=== PATIENT | female | born 1970 | race Two or more races ===

== ENCOUNTER 2019-09-02 22:47 | Emergency (ER) | payer SELFPAY ==
[~2019-09-02] VITALS: Ht 157.5 cm; Wt 80.0 kg
[2019-09-02] MEDS ORDERED: LISI-662 PO (23:03)
[2019-09-02] MEDS ORDERED: SODIUM CHLORIDE 0.9% 1,000 ML IV ONE (23:45)
[2019-09-02] MEDS ORDERED: ACETAMINOPHEN 500 MG TABLET PO ONE (23:45)
[2019-09-03 00:18] LABS: BASOPHILS % (AUTO) 0.7 % (0.0-2.0); EOSINOPHILS % (AUTO) 2.2 % (1.0-6.0); HEMATOCRIT 40.4 % (36-46); HEMOGLOBIN 13.6 g/dL (12.0-16.0); LYMPHOCYTES # (AUTO) 2.1 K/uL (1.0-4.8); LYMPHOCYTES % (AUTO) 31.7 % (22.0-44.0); MEAN CORPUSCULAR HEMOGLOBIN 28.9 pg (26.0-34.0); MEAN CORPUSCULAR HGB CONC 33.6 G/dL (31.0-37.0); MEAN CORPUSCULAR VOLUME 86 fL (80-100); MONOCYTES # (AUTO) 0.6 K/uL (0.1-1.0); MONOCYTES % (AUTO) 9.7 % (2.0-9.0); NEUTROPHILS # (AUTO) 3.7 K/uL (1.8-7.7); NEUTROPHILS % (AUTO) 55.7 % (40.0-70.0); PLATELET COUNT (AUTO) 231 K/uL (150-450)
[2019-09-03 00:22] LABS: CALCIUM, TOTAL 8.8 mg/dL (8.8-10.5); CREATININE 1.12 mg/dL (0.60-1.30); POTASSIUM 3.8 mmol/L (3.5-5.1)
[2019-09-03 00:36] LABS: ALBUMIN 3.5 g/dL (3.4-5.0); BILIRUBIN,TOTAL 0.2 mg/dL (0.1-1.0); TOTAL PROTEIN, SERUM 8.3 g/dL (6.4-8.2)
[2019-09-03 01:02] LABS: INFLUENZA TYPE A NEGATIVE FOR TYPE A (NEGATIVE); INFLUENZA TYPE B NEGATIVE FOR TYPE B (NEGATIVE)
[2019-09-03 01:19] VITALS: BP 135/89
== END 2019-09-03 02:20 | disposition home or self-care (01) ==
LOC: EMS 22:50
DX: B34.9 Viral infection, unspecified (principal); M54.9 Dorsalgia, unspecified; I10 Essential (primary) hypertension; Z20.828 Contact with and (suspected) exposure to other viral communicable diseases; Z79.899 Other long term (current) drug therapy
CPT/HCPCS: 36415; 71046; 80053; 84702; 85025; 87635; 87804; 99284; J7030

== ENCOUNTER 2021-05-20 14:14 | Emergency (ER) | payer SELFPAY ==
[~2021-05-20] VITALS: Ht 157.5 cm; Wt 84.1 kg
[~2021-05-20 14:14] MED LIST: LISI-894 PO
[2021-05-20 15:10] VITALS: BP 150/93
== END 2021-05-20 15:29 | disposition home or self-care (01) ==
LOC: EMS 14:20
DX: F41.0 Panic disorder [episodic paroxysmal anxiety] (principal); E11.9 Type 2 diabetes mellitus without complications; I10 Essential (primary) hypertension
CPT/HCPCS: 82962; 99282; 99283

== ENCOUNTER 2022-01-16 15:25 | Emergency (ER) | payer SELFPAY ==
[~2022-01-16] VITALS: Ht 165.1 cm; Wt 77.3 kg
[2022-01-16] MEDS ORDERED: METF-1211 PO (16:03)
[2022-01-16 16:28] LABS: BASOPHILS % (AUTO) 0.3 % (0.0-2.0); EOSINOPHILS % (AUTO) 1.6 % (1.0-6.0); HEMATOCRIT 40.8 % (36-46); HEMOGLOBIN 13.9 g/dL (12.0-16.0); LYMPHOCYTES # (AUTO) 1.5 K/uL (1.0-4.8); LYMPHOCYTES % (AUTO) 19.9 % (22.0-44.0); MEAN CORPUSCULAR HEMOGLOBIN 28.9 pg (26.0-34.0); MEAN CORPUSCULAR HGB CONC 34.1 G/dL (31.0-37.0); MEAN CORPUSCULAR VOLUME 85 fL (80-100); MONOCYTES # (AUTO) 0.6 K/uL (0.1-1.0); MONOCYTES % (AUTO) 8.3 % (2.0-9.0); NEUTROPHILS # (AUTO) 5.2 K/uL (1.8-7.7); NEUTROPHILS % (AUTO) 69.9 % (40.0-70.0); PLATELET COUNT (AUTO) 220 K/uL (150-450); RED BLOOD CELL COUNT(AUTO) 4.81 MIL/uL (4.00-5.20); RED CELL DISTRIBUTION WIDTH 13.2 % (11.5-14.5)
[2022-01-16 16:36] LABS: CALCIUM, TOTAL 9.1 mg/dL (8.8-10.5); CREATININE 1.04 mg/dL (0.60-1.30); POTASSIUM 3.7 mmol/L (3.5-5.1)
[2022-01-16 16:42] LABS: ALBUMIN 3.7 g/dL (3.4-5.0); BILIRUBIN,TOTAL 0.3 mg/dL (0.1-1.0); TOTAL PROTEIN, SERUM 8.1 g/dL (6.4-8.2)
[2022-01-16 18:28] VITALS: BP 133/88
[2022-01-16] MEDS ORDERED: AMOX500C2 PO (18:29)
== END 2022-01-16 18:38 | disposition home or self-care (01) ==
LOC: EMS 15:27
DX: H66.92 Otitis media, unspecified, left ear (principal); R42 Dizziness and giddiness; I10 Essential (primary) hypertension; E11.9 Type 2 diabetes mellitus without complications; Z79.84 Long term (current) use of oral hypoglycemic drugs
CPT/HCPCS: 80053; 82962; 84484; 85025; 93005; 99284

== ENCOUNTER 2024-12-12 22:44 | Emergency (ER) | payer SELFPAY ==
[~2024-12-12] VITALS: Ht 165.1 cm; Wt 73.6 kg
[~2024-12-12 22:44] MED LIST changes: +AMOX500C2 PO; +METF-1211 PO
[2024-12-13 00:25] LABS: BASOPHILS % (AUTO) 0.5 % (0.0-2.0); EOSINOPHILS % (AUTO) 0.4 % (1.0-6.0); HEMATOCRIT 38.7 % (36-46); LYMPHOCYTES # (AUTO) 1.2 K/uL (1.0-4.8); LYMPHOCYTES % (AUTO) 24.1 % (22.0-44.0); MEAN CORPUSCULAR HEMOGLOBIN 28.2 pg (26.0-34.0); MEAN CORPUSCULAR HGB CONC 33.7 G/dL (31.0-37.0); MEAN CORPUSCULAR VOLUME 84 fL (80-100); MONOCYTES # (AUTO) 0.6 K/uL (0.1-1.0); MONOCYTES % (AUTO) 11.4 % (2.0-9.0); NEUTROPHILS # (AUTO) 3.1 K/uL (1.8-7.7); NEUTROPHILS % (AUTO) 63.6 % (40.0-70.0); PLATELET COUNT (AUTO) 193 K/uL (150-450); RED BLOOD CELL COUNT(AUTO) 4.63 MIL/uL (4.00-5.20); RED CELL DISTRIBUTION WIDTH 13.9 % (11.5-14.5); WHITE BLOOD COUNT (AUTO) 4.8 K/uL (4.5-11.0)
[2024-12-13 00:33] LABS: ANION GAP 6 mmol/L (8-16); CALCIUM, TOTAL 8.9 mg/dL (8.8-10.5); CARBON DIOXIDE 29 mmol/L (22-29); CHLORIDE 101 mmol/L (98-107); CREATININE 0.92 mg/dL (0.60-1.30); GLOMERULAR FILTR. RATE CALC > 60 mL/min (>60); GLUCOSE,RANDOM 255 mg/dL (70-110); POTASSIUM 3.7 mmol/L (3.5-5.1); SODIUM SERUM 136 mmol/L (136-145); UREA NITROGEN, BLOOD 16 mg/dL (7-18)
[2024-12-13 03:25] VITALS: BP 132/90; PULSE 90; RESP 17; O2SAT 97
== END 2024-12-13 03:33 | disposition home or self-care (01) ==
LOC: EMS 22:49
DX: M54.6 Pain in thoracic spine (principal); R06.02 Shortness of breath; E11.9 Type 2 diabetes mellitus without complications; E78.00 Pure hypercholesterolemia, unspecified; I10 Essential (primary) hypertension; Z98.890 Other specified postprocedural states; Z79.899 Other long term (current) drug therapy
CPT/HCPCS: 71045; 80048; 84443; 85025; 85379; 93005; 99285; 36415-L1; 36415-TC